=== PATIENT | female | born 1995 | race Caucasian/White ===

== ENCOUNTER 2020-08-25 16:52 | Outpatient (CLI) | payer OTHER, SELFPAY ==
[2020-08-25 17:43] LABS: Hematocrit 36.9 % (37.0-47.0); Hemoglobin 12.5 g/dL (12.0-15.0); Mean Platelet Volume 9.6 fl (7.4-10.4); Platelet Count Result 311 k/mm3 (150-375)
[2020-08-25 18:06] LABS: Hemoglobin A1C 4.9 % (<5.7)
[2020-08-25 18:38] LABS: HIV 1/2 Ab P24 Ag Result Negative (Negative)
[2020-08-25 18:58] LABS: Rubella IgG Antibody 26.4 IU/ML
[2020-08-25 19:10] LABS: Hepatitis B Surface Anti Res Negative; Hepatitis C Virus Antibody Negative (Negative)
[2020-08-26 07:11] LABS: Rapid Plasma Reagin Non-Reactive (NonReactive)
== END 2020-08-25 16:53 | disposition home or self-care (01) ==
LOC: ANHLAB 16:56
PROVIDERS: Visit Provider Obstetrics & Gynecology
DX: Z34.90 Encounter for supervision of normal pregnancy, unspecified, unspecified trimester (principal); Z3A.00 Weeks of gestation of pregnancy not specified
CPT/HCPCS: 36415; 83036; 85014; 85018; 85049; 86592; 86703; 86706; 86762; 86803; 86850; 86900; 86901; G0432

== ENCOUNTER 2021-03-05 06:04 | Inpatient (IN) | payer OTHER, SELFPAY ==
[2021-03-05] VITALS (107 sets, daily range): BP systolic 89–137; BP diastolic 48–99; PULSE 70–148; RESP 18; TEMP 36.4–37.2; O2SAT 86–100; BMI 31.7
--- NOTE | 2021-03-05 06:04 | LDADM ---
This patient, Vijaya Rolle, was admitted to Labor/Delivery/Recovery 106 on 03/05/21 at 06:04. Plans for labor, pain management and were discussed with patient. Patient/family oriented to hospital policies and general routines including ID bracelet, bed and alarms, visiting hours, pain management, procedures, bathroom and other care routines, personal items, smoking policy, room service/diet and guest tray routines, security routines, and visiting hours. Patient/Family are encouraged to report perceived risks to care and to ask questions if they do not understand what they are told or what they should do. See OBIX for further documentation.
[2021-03-05] MEDS: OXYTOCIN 30 UNITS/NS 500 ML 30 UNITS/500 ML BAG 6 UNITS IV CONT (06:56)
[2021-03-05 07:33] LABS: Basophils Percent Auto 0.2 % (0.2-1.2); Eosinophils Absolute Auto 0.1 K/mm3 (0-0.3); Eosinophils Percent Auto 0.6 % (0-4.4); Hematocrit 33.5 % (37.0-47.0); Immature Granulocyte Absolute 0.08 K/mm3 (0.00-0.031); Immature Granulocyte Percent A 0.7 % (0-0.5); Lymphocytes Absolute Auto 1.75 K/mm3 (0.9-3.2); Lymphocytes Percent Auto 15.4 % (18.3-44.2); Mean Corpuscular HGB Conc 32.8 g/dl (32-36); Mean Corpuscular Hemoglobin 28.6 pg (26-34); Mean Platelet Volume 11.2 fl (7.4-10.4); Monocytes Absolute Auto 0.6 K/mm3 (0.1-0.6); Monocytes Percent Auto 5.4 % (2.6-8.5); Neutrophils Absolute Auto 8.9 K/mm3 (1.3-6.7); Neutrophils Percent Auto 77.7 % (45.5-73.1); Platelet Count Result 277 k/mm3 (150-375); Red Blood Count 3.85 M/mm3 (4.2-5.4); White Blood Count 11.4 K/mm3 (4.5-10.0)
[2021-03-05 07:37] LABS: Amphetamine Screen Urine Negative (Negative); Barbiturate Screen Urine Negative (Negative); Benzodiazepines Screen Urine Negative (Negative); Cannabinoid Screen Urine Positive (Negative); Cocaine Screen Urine Negative (Negative); Methadone Screen Urine Negative (Negative); Opiate Screen Urine Negative (Negative); Phencyclidine Screen Urine Negative (Negative)
--- NOTE | 2021-03-05 08:47 | WPDANESEPP ---
Anes - Eval Pre Procedure Procedure: labor epidural Date/Time: 03/05/21 08:47 Pre Op Diagnosis: Induction of Labor Patient Data Age: 25 Gender: F Height: 1.7 m Weight: 92 kg Last Vital Signs Pulse 75 03/05/21 08:16 BP 105/54 L 03/05/21 08:16 Allergies Allergy/AdvReac Type Severity Reaction Status Date / Time No Known Allergies Allergy Unverified 01/19/16 10:56 Home Medications Medication Instructions Recorded Confirmed Type PNV cmb#95-ferrous fumarate-FA 1 tablet PO DAILY 02/07/21 02/07/21 History [] fluoxetine 20 mg PO DAILY 02/07/21 02/07/21 History propranolol 10 mg PO Q8H PRN 02/07/21 02/07/21 History Laboratory Tests 03/05/21 03/05/21 03/05/21 06:50 06:50 06:50 WBC 11.4 K/mm3 H K/mm3 (4.5-10.0) RBC 3.85 M/mm3 L M/mm3 (4.2-5.4) Hgb 11.0 g/dL L g/dL (12.0-15.0) Hct 33.5 % L % (37.0-47.0) MCV 87.0 fl fl (80-100) MCH 28.6 pg pg (26-34) MCHC 32.8 g/dl g/dl (32-36) RDW 13.0 % % (11.5-14.5) Plt Count 277 k/mm3 k/mm3 (150-375) MPV 11.2 fl H fl (7.4-10.4) Immature Gran % (Auto) 0.7 % H % (0-0.5) Neut % (Auto) 77.7 % H % (45.5-73.1) Lymph % (Auto) 15.4 % L % (18.3-44.2) Giles % (Auto) 5.4 % % (2.6-8.5) Eos % (Auto) 0.6 % % (0-4.4) Baso % (Auto) 0.2 % % (0.2-1.2) Lymph # (Auto) 1.75 K/mm3 K/mm3 (0.9-3.2) Giles # (Auto) 0.6 K/mm3 K/mm3 (0.1-0.6) Eos # (Auto) 0.1 K/mm3 K/mm3 (0-0.3) Baso # (Auto) 0.0 K/mm3 K/mm3 (0.0-0.1) Abs Immat Gran (auto) 0.08 K/mm3 H K/mm3 (0.00-0.031) Absolute Neuts (auto) 8.9 K/mm3 H K/mm3 (1.3-6.7) Absolute Nucleated RBC 0.0 K/mm3 K/mm3 (0.0-0.012) Nucleated RBC % 0.0 % % (0.0-0.2) Urine Opiates Screen Urine Methadone Screen Ur Barbiturates Screen Ur Phencyclidine Scrn Ur Amphetamine Screen U Benzodiazepines Scrn Urine Cocaine Screen U Cannabinoids Screen RPR Pending Blood Type O Positive Antibody Screen Negative 03/05/21 07:13 WBC RBC Hgb Hct MCV MCH MCHC RDW Plt Count MPV Immature Gran % (Auto) Neut % (Auto) Lymph % (Auto) Giles % (Auto) Eos % (Auto) Baso % (Auto) Lymph # (Auto) Giles # (Auto) Eos # (Auto) Baso # (Auto) Abs Immat Gran (auto) Absolute Neuts (auto) Absolute Nucleated RBC Nucleated RBC % Urine Opiates Screen Negative (Negative) Urine Methadone Screen Negative (Negative) Ur Barbiturates Screen Negative (Negative) Ur Phencyclidine Scrn Negative (Negative) Ur Amphetamine Screen Negative (Negative) U Benzodiazepines Scrn Negative (Negative) Urine Cocaine Screen Negative (Negative) U Cannabinoids Screen Positive A (Negative) RPR Blood Type Antibody Screen Patient hx anesthesia problems: none Family hx anesthesia problems: none PMFSH Family History Family History Sibling ADHD Social History Social History Smoking status: Never smoker Second hand tobacco smoke exposure: No Substance use: never Gender identity (if verbalized by the patient): Female Spiritual care concerns: No Exam Day of Procedure 03/05/21 08:47 Patient weight: obese Heart: regular rate and rhythm Lungs: clear to auscultation Airway: Mallampati scale Neurological: alert and oriented
[2021-03-05] MEDS: LACTATED RINGERS 1,000 ML 125 ML IV CONT ×2 (09:17→12:05)
--- NOTE | 2021-03-05 10:43 | WPDOBADMIT ---
Obstetrics - Admit Note Admission Note: record reviewed. No pertinent additions to the history and/or any subsequent changes in the physical findings that are not consistent with the expected course of the were found. MIL sve 6-7/80/-2 AROM moderate amount of clear odorless fluid Additions to the history and/or subsequent changes in the physical findings follow. None.
--- NOTE | 2021-03-05 14:38 | PM.OBPRVD ---
OB - Delivery Note Procedure Delivery date: 03/05/21 Procedure: vaginal delivery Intrapartal events: None Induction method: AROM and per pitocin protocol Delivery monitor: external FHT and external uterine Route of delivery: Laceration Description: Perineal - 2nd Degree and Labial (left) Delivery repair: vicryl Specimen: No Quantitative Blood Loss (ml): 625 Anesthesia type: Epidural Disposition: floor [place] Baby Date of : 03/05/21 Time of : 14:09 Weeks of gestation at delivery: 39 Infant gender: Female Weight (pounds): 7 Weight (ounces): 14 presentation: vertex position: Right Occiput Anterior Placenta delivery description: Spontaneous cord vessel description: 3 Vessels, Clamped/Cut and Delayed Cord Clamping score one minute: 9 score five minutes: 9
[2021-03-05] MEDS: OXYTOCIN 30 UNITS/NS 500 ML 30 UNITS/500 ML BAG 125 UNITS IV CONT (14:41)
--- NOTE | 2021-03-05 17:01 | PC.NURSE ---
Patient transferred to post room #280 per wheelchair from labor and delivery. Support person present. Oriented to unit, room, information board, rooming in, admission packet and security measures. Patient verbalizes understanding.
[2021-03-05] MEDS: ACETAMINOPHEN 325 MG TABLET 650 MG PO (19:02)
[2021-03-06 04:00] VITALS: BP 122/67; PULSE 79; RESP 18; TEMP 36.6; O2SAT 99
[2021-03-06 05:47] LABS: Hematocrit 26.1 % (37.0-47.0); Hemoglobin 8.4 g/dL (12.0-15.0)
[2021-03-06 07:54] VITALS: BP 112/62; PULSE 74; RESP 18; TEMP 37.1; O2SAT 98
[2021-03-06] MEDS: POLYSACCHARIDE IRON COMPLEX 150 MG CAPSULE PO ×2 (07:55→15:55)
[2021-03-06] MEDS: MULTIVIT/MIN/PREN/FOL AC/IRON TABLET 1 TAB PO (07:55)
[2021-03-06] MEDS: IBUPROFEN 600 MG TABLET PO ×2 (07:55→15:55)
[2021-03-06] MEDS: DOCUSATE SODIUM 100 MG CAPSULE PO ×2 (07:55→15:55)
--- NOTE | 2021-03-06 09:04 | WPDANLDPN2 ---
Anes-Prog Note L&D Date/Time: 03/06/21 09:04 Comfortable throughout: labor and delivery Neuraxial method: epidural Epidural/Spinal procedure site: clean & non-tender Neuro status: Neuro function grossly intact. Cardiovascular status: normal Respiratory status: normal Airway patency: baseline Mental status: baseline Post-Op hydration status: normal Vital Signs: Last Vital Signs Temp 37.1 C 03/06/21 07:54 Pulse 74 03/06/21 07:54 Resp 18 03/06/21 07:54 BP 112/62 03/06/21 07:54 Pulse Ox 98 03/06/21 07:54 Pain score (VAS): 0/10 I/O: Intake & Output 03/05/21 03/06/21 03/06/21 23:59 07:59 15:59 Intake Total 1300 Output Total 900 Balance 400 Post-procedural complaints: none Patient feedback: Patient satisfied with anesthetic care.
--- NOTE | 2021-03-06 10:37 | PM.OBPNVD ---
OB - PN: Subj Subjective Date/time seen: 03/06/21 10:37 Patient comments: no complaints baby status: doing well OB - PN: Obj Data Labs CBC & Chem 7: 03/06/21 03:54 Labs: Laboratory Results - last 24 hr 03/06/21 03:54 Hgb 8.4 L Hct 26.1 L OB - PN A/P Plan day: 1 Plan: routine care Time Spent With Patient Time: Total time spent is greater than 50% in coordination of care (as documented) at patient's floor/unit and/or counseling patient: Review of Systems Review of Systems: All systems reviewed & are unremarkable except as noted in HPI and below Exam Const: General: cooperative and healthy appearing
[2021-03-06 13:28] VITALS: BP 117/70; PULSE 81; RESP 16; TEMP 36.4; O2SAT 99
[2021-03-06 18:24] VITALS: BP 119/72; PULSE 99; RESP 18; TEMP 36.6; O2SAT 99
--- NOTE | 2021-03-06 22:25 | PC.NURSE ---
03/06/2021 at 1999 Patient viewed the discharge video Mother & Baby Care, The First Two Weeks . Patient was given the opportunity and encouraged to ask questions. Patient verbalized understanding of information shared and has been given the mother/baby guide for home reference.
[2021-03-07 06:21] LABS: Rapid Plasma Reagin Non-Reactive (NonReactive)
--- NOTE | 2021-03-07 07:37 | PM.OBPNVD ---
OB - PN: Subj Subjective Date/time seen: 03/07/21 07:37 Patient comments: no complaints baby status: doing well [place] feeding status: exclusively bottle feeding Narrative: E/A/V OB - PN: Obj Data Labs CBC & Chem 7: 03/06/21 03:54 Labs: Laboratory Results - last 24 hr 03/05/21 06:50 RPR Non-reactive OB - PN A/P Assessment and Plan (1) , delivered: Code(s): O80 - Encounter for full-term uncomplicated delivery Status: Acute (2) Acute blood loss anemia: Code(s): D62 - Acute posthemorrhagic anemia Status: Acute Plan day: 2 Plan: routine care and discharge home Comments: continue iron for anemia. Discussed OTC medications. Time Spent With Patient Time: Total time spent is greater than 50% in coordination of care (as documented) at patient's floor/unit and/or counseling patient: Time with patient: less than 15 minutes Exam Narrative: NAD abdomen soft, nontender, fundus firm below the umbilicus Extremities nontender, 1+ edema
--- NOTE | 2021-03-07 07:43 | PM.OBDSVD ---
DS: Admitting Diagnosis Admitting Diagnosis induction of labor term DS: Discharge Diagnosis Discharge Diagnosis (1) Acute blood loss anemia: Code(s): D62 - Acute posthemorrhagic anemia Status: Acute (2) , delivered: Code(s): O80 - Encounter for full-term uncomplicated delivery Status: Acute OB - DS: Summary OB Procedures : Ultrasound OB Procedures Intrapartum: Spontaneous Vag Delivery OB Procedures: : None Peripartum Data Delivery Method: Natural Vaginal Laceration Description: Perineal - 2nd Degree complications: none Status at Discharge Functional status at discharge: independent ambulation Time Spent with Patient Time attestation: Total time spent providing and/or coordinating discharge services: Time spent: Less than 30 minutes Exam Narrative: NAD abdomen soft, appropriately tender Ext non tender, 1+ edema DS: Data Data Completed and Pending Labs on day of discharge: Labs from last 24 hours 03/05/21 06:50 RPR Non-reactive Discharge Plan Discharge Attending physician on discharge: Sheri Plunkett Discharging Clinician: Sheri Plunkett Anticipated Discharge Date/Time: 03/07/21 11:00 Patient Disposition: Home, Self-Care Activity: pelvic rest Diet: as tolerated Discharge Instructions: Education: Mom and Baby Guide Given to: Mother Follow-Up: Call your delivering provider's office for an appointment to be seen in: 4 Weeks Mom and baby should come to the [facility] for the follow-up appointment. Appointment Date/Time: March 09, 2021 at 9:00 am What to expect at your follow-up visit: Blood Pressure Check Physical Assessment Call [phone] if you are unable to keep your appointment time. BREAST CARE: * Wear a snug supportive bra. * For engorgement discomfort: Bottle Feeding: * May apply ice packs *No stimulation to breasts EPISIOTOMY/PERINEAL CARE: * Until bleeding stops, use your laura bottle after urinating * Change your pad frequently throughout the day * You may take sitz baths several times a day (fill your bathtub with warm water and soak for 20 minutes.) Do NOT bathe in the water * No tub baths until seen by your physician - You may shower ACTIVITY: * Rest as much as possible. * Do not exercise or lift anything heavier than your baby (such as laundry or other children.) * Avoid stairs or driving as much as possible. * Do not put anything into the vagina. No douching, tampons, or sexual activity until seen by physician. NOTIFY PHYSICIAN IF YOU HAVE ANY QUESTIONS OR IF ANY OF THE FOLLOWING SYMPTOMS OCCUR: * If your vaginal area becomes red, swollen, or more painful than what you have experienced in the hospital. * If your vaginal bleeding becomes foul smelling. * If your vaginal bleeding becomes more heavy than a period or if your bleeding changes from pink to bright red. However, you may pass an occasional walnut-sized clot once or twice for the first week . * If you experience a sharp, shooting pain in your calves. * If you discover a hard, reddened area on your breast or if you experience flu-like symptoms. DIET: * Eat regular, well-balanced meals. * Drink plenty of fluids daily. Patient Instructions: Antibiotic Form, Vaginal Delivery (DC) Stand Alone Forms: General Discharge Information Follow-up/Referrals: Ghislaine Deutsch MD [Physician] - 4 Weeks Discharge Medications: Continued propranolol 10 mg Tablet 10 mg PO Q8H PRN (Reason: Anxiety) RF: 0 fluoxetine 20 mg Capsule 20 mg PO DAILY RF: 0 PNV cmb#95-ferrous fumarate-FA [] 28 mg iron- 800 mcg Tablet 1 tablet PO DAILY RF: 0 Date of admission: 03/05/21 06:04 Primary Care Provider: PHYSICIAN,[facility] Admitting Provider: Ghislaine Deutsch Attending physician on admission: Ghislaine Deutsch Condition: Stable
[2021-03-07 08:00] VITALS: BP 118/75; PULSE 78; RESP 18; TEMP 36.3; O2SAT 99
--- NOTE | 2021-03-07 11:08 | PCCCNOTE ---
Addendum entered by PERCY Cervantes 03/08/21 09:20: Received email notification that DCFS will not take a report. Original Note: Care Coordination Consult: Met with pt. and CHELSEY Jacques today. This is pt.'s and Sawyer's first child. Pt. has a supportive family. Has all necessary supplies at home for baby including a crib, carseat, clothing, diapers and bottles. Plans to bottle feed baby at discharge. Resources were provided. Pt. is thinking about utilizing [facility] services at discharge and plans to use the [place] office if needed. Pt. reports recreational marijuana use and is aware she tested positive at admission. Baby's meconium is pending. Pt. denies a reliance on marijuana, denies any other substance use. Plans to discharge today. Denies any other case management needs. Did complete online DCFS report regarding marijuana use, ID [id number].
[2021-03-07] MEDS: IBUPROFEN 600 MG TABLET PO (11:57)
[2021-03-07] MEDS: POLYSACCHARIDE IRON COMPLEX 150 MG CAPSULE PO (11:57)
[2021-03-07] MEDS: FLUoxetine HCL 20 MG CAPSULE PO (11:58)
[2021-03-07] MEDS: MULTIVIT/MIN/PREN/FOL AC/IRON TABLET 1 TAB PO (11:58)
[2021-03-07] MEDS: DOCUSATE SODIUM 100 MG CAPSULE PO (11:58)
[2021-03-07 12:00] VITALS: PULSE 78; RESP 18; O2SAT 99
== END 2021-03-07 13:00 | disposition home or self-care (01) | DRG 807 ==
LOC: ANHOB2 03-07 07:42 → ANHLDR 03-09 15:06 → ANHOB2 03-09 15:06
PROVIDERS: Advanced Practice Midwife; Admitting Provider Obstetrics & Gynecology; Visit Provider Obstetrics & Gynecology
DX: O70.1 Second degree perineal laceration during delivery (principal); Z37.0 Single live birth; Z3A.39 39 weeks gestation of pregnancy
CPT/HCPCS: 36415; 80307; 85014; 85018; 85025; 86592; 86850; 86900; 86901; A9270; J2590; J2795; J7120

== ENCOUNTER 2024-04-02 15:34 | Outpatient (CLI) | payer OTHER, SELFPAY ==
--- NOTE | ~2024-04-02 | US_ITS ---
US breast LT limited 04/02/2024 15:50 Indication: Palpable left breast lump. Procedure: High-resolution Limited ultrasound of the left breast Comparison: No prior studies for comparison. Findings: In the area of palpable concern at 2:00 in the left breast, 4 cm from the nipple there is a n oval heterogeneous predominantly hypoechoic mass with parallel orientation, no significant posterio r features and brisk internal vascularity measuring 5.7 x 3.1 x 5.3 cm. Impression: 1: Left breast mass measuring up to 5.7 cm with internal vascularity in the area palpable concern. BI-RADS CATEGORY 4-SUSPICIOUS ABNORMALITY RECOMMENDATION: Ultrasound-guided left breast biopsy recommended. Reviewed, dictated and finalized at location B. Impression: 1: Left breast mass measuring up to 5.7 cm with internal vascularity in the are a palpable concern. BI-RADS CATEGORY 4-SUSPICIOUS ABNORMALITY RECOMMENDATION: Ultrasound-guided left breast biopsy recommended.
== END 2024-04-02 15:35 | disposition home or self-care (01) ==
LOC: MICIMG 15:34
PROVIDERS: PCP Advanced Practice Midwife; Visit Provider Advanced Practice Midwife
DX: N63.21 Unspecified lump in the left breast, upper outer quadrant (principal)
CPT/HCPCS: 76642

== ENCOUNTER 2024-04-17 14:12 | Outpatient (CLI) | payer OTHER, SELFPAY ==
--- NOTE | ~2024-04-17 | US_ITS ---
Post biopsy pathology: Blunt duct adenosis. Negative for malignancy. Findings are discordant. Recomme nd repeat biopsy. Reviewed, dictated and finalized at location B.
--- NOTE | 2024-04-17 13:39 | WPDBIOPSY ---
Biopsy Procedure Date of Procedure 04/17/24 Indication Left breast mass at 2 o'clock position 4cm from the nipple Impression Same as above Procedure Performed Procedure Performed: US Breast Biopsy with Imaging Surgeon Fernanda Rowland MD Anesthesia Anesthesia: Local Description of Procedure Description of Procedure: Risk of the procedure were discussed with the patient which included but not limited to risk of bleeding, infection, possible need for repeat biopsy or additional procedures in the future, bruising, hematoma,etc. Benefits and alternatives to procedure were discussed as well. Consent was obtained and a time out was performed. The left breast mass was identified using the US at 2 o'clock position 4 cm from the nipple, and lidocaine with epinephrine was used to anesthetize the skin and tissue surrounding the mass under US guidance. A 10g vacuum assisted device was used to obtain 4 core biopsy specimens under US guidance. An Inrad tissue marker clip was then placed at the biopsy site under US guidance. Pressure was held over the area for 10 minutes with excellent hemostasis. Core needle specimens were sent to pathology in formalin. Patient tolerated the procedure well with no immediate complications. A post-procedure left mammogram was not obtained due to patient's .
== END 2024-04-17 14:13 | disposition home or self-care (01) ==
LOC: ANHIMG 14:13
PROVIDERS: PCP Advanced Practice Midwife; Visit Provider Surgery
DX: O92.29 Other disorders of breast associated with pregnancy and the puerperium (principal); N63.21 Unspecified lump in the left breast, upper outer quadrant; N60.22 Fibroadenosis of left breast
CPT/HCPCS: 19083; 88305; 88342; A4648

== ENCOUNTER 2024-04-25 09:28 | Outpatient (RCR) | payer OTHER, SELFPAY ==
--- NOTE | ~2024-04-25 | US_ITS ---
EXAMINATION: US OB BPP wo non-stress DATE: 04/25/2024 11:15 INDICATION: Nonreactive nonstress test in office exam TECHNIQUE: Real-time pelvic ultrasound was performed. The interpreting radiologist was not present fo r the study. COMPARISON: None. FINDINGS: There is a single living fetus in vertex presentation. The placenta is posterior. heart rate i s 132 beats per minute (bpm). Biophysical profile performed by the technologist: breathing (30 sec sustained breathing in 30 minutes): 2 out of 2 movement (3 gross body movements in 30 minutes): 2 out of 2 tone (one episode of hjgsafz-xvazcgxkw-gfrhkqu limb movement): 2 out of 2 Amniotic fluid pocket (2 cm): 2 out of 2 Total score: 8 out of 8 IMPRESSION: 1. Single living fetus in vertex presentation with heart rate of 132 bpm. 2. Biophysical profile 8 out of 8. Reviewed, dictated and finalized at location A.
[2024-04-25 11:11] VITALS: BP 111/73; PULSE 75
== END 2024-07-24 23:59 | disposition home or self-care (01) ==
LOC: ANHOBOP 09:28
PROVIDERS: Visit Provider Advanced Practice Midwife
DX: O36.8330 Maternal care for abnormalities of the fetal heart rate or rhythm, third trimester, not applicable or unspecified (principal)
CPT/HCPCS: 59025; 76819

== ENCOUNTER 2024-05-01 15:49 | Outpatient (RCR) | payer OTHER, SELFPAY ==
[2024-04-30] MEDS: BETAMETHASONE SOD PHOS/ACETATE 30 MG/5 ML VIAL 12 MG IM (12:14)
[2024-05-01] MEDS: BETAMETHASONE SOD PHOS/ACETATE 30 MG/5 ML VIAL 12 MG IM (16:07)
== END 2024-07-29 23:59 | disposition home or self-care (01) ==
LOC: ANHOBOP 15:49
PROVIDERS: Visit Provider Advanced Practice Midwife
DX: Z36.84 Encounter for antenatal screening for fetal lung maturity (principal)
CPT/HCPCS: 96372; J0702

== ENCOUNTER 2024-05-09 | Inpatient (IN) | payer OTHER, SELFPAY ==
[2024-05-09] VITALS (89 sets, daily range): BP systolic 82–145; BP diastolic 40–116; PULSE 65–95; RESP 16–18; TEMP 36.4–37.2; O2SAT 97–100
--- OUTSIDE RECORDS SUMMARY | 2024-05-09 00:10 | XMS_ITS ---
Author Name Unknown Address [address], [place] Phone Organization [facility] Address [address] [place] [address] Phone Care Team Providers Care Siderographer Name Role Phone MARCO FLANAGAN, JOSIAH Lopez Unavailable [phone] Problems Includes: Active, inactive, and resolved Problems All Visits Onset Date Resolved Date Provider Condition S tatus Endometriosis 10/30/2018 JAY NIETO [facility] Active Last Documented On 10/30/2018 12:54PM ; [facility] Note: confirmed with surgery - Dr. Isai Laguerre - KIANNA - 2015 Plan of Treatment Findings Encounter Date Ordered Clinical summary pro vided to patient 2 WK CK-UP with JAY NIETO [facility] 02/05/2020 Instructions to patient May resume normal activities as tolerated Last Documented On 0 10:26AM ; [facility] Instructions for patient : B reast Self Exam discussed Last Documented On 0 9:10AM ; [facility] Instructions for patient : t he patient was instructed in the use and possible side effects of the medication prescribed. She is to maintain good hydration via p.o. fluids. We also discussed possible triggers for UTI and preventive measures Last Documented On 0 9:18AM ; [facility] Lose weight Last Documented On 0 9:10AM ; [facility] Patient to call if fever or back pain Last Documented On 0 9:18AM ; [facility] Instructed to decrease carbo nation and caffeine Last Documented On 0 9:18AM ; [facility] Increase water po Last Documented On 0 9:18AM ; [facility] Instructions For Patient: go od handwashing and perineal care Last Documented On 0 9:18AM ; [facility] Instructions for patient : K eep the area around the vulva dry. Allow the area to have exposure to air. Avoid irritants such as fabric softeners and perfumed soaps.~ Last Documented On 0 1:31PM ; [facility] Advised d/c scented bath pro ducts Last Documented On 0 1:31PM ; [facility] Instructions for patient : B reast Self Exam discussed Last Documented On 9 9:37AM ; [facility] Lose weight Last Documented On 9 9:38AM ; [facility] Gardasil information given a nd series encouraged Series completed! Last Documented On 9 9:38AM ; [facility] Safe sex counseling Last Documented On 9 9:38AM ; [facility] Safe sex counseling Last Documented On 9 12:34PM ; [facility] Instructions for patient : B reast Self Exam discussed Last Documented On 5 9:56AM ; [facility] Instructions for patient : K eep the area around the vulva dry. Allow the area to have exposure to air. Avoid irritants such as fabric softeners and perfumed soaps.~ Last Documented On 5 10:31AM ; [facility] Advised d/c scented bath pro ducts Last Documented On 5 10:31AM ; [facility] Gardasil information given a nd series encouraged Series completed! Last Documented On 5 9:56AM ; [facility] Safe sex counseling Last Documented On 5 9:56AM ; [facility] Instructions for patient : B reast Self Exam discussed Last Documented On 4 10:02AM ; [facility] Instructions for patient : K eep the area around the vulva dry. Allow the area to have exposure to air. Avoid irritants such as fabric softeners and perfumed soaps.~ Last Documented On 4 10:15AM ; [facility] Advised d/c scented bath pro ducts Last Documented On 4 10:15AM ; [facility] Gardasil information given a nd series encouraged Series completed with Dr. Mckeon! Last Documented On 4 10:09AM ; [facility] Safe sex counseling Last Documented On 4 10:03AM ; [facility] Instructions for patient : B reast Self Exam discussed Last Documented On 2 3:13PM ; [facility] Gardasil information given a nd series encouraged Last Documented On 2 3:13PM ; [facility] Safe sex counseling Last Documented On 2 3:13PM ; [facility] Instructions for patient : K eep the area around the vulva dry. Allow the area to have exposure to air. Avoid irritants such as fabric softeners and perfumed soaps.~ Last Documented On 2 10:15AM ; [facility] Advised d/c scented bath pro ducts Last Documented On 2 10:15AM ; [facility] Instructions For Patient: pe lvic rest until test results back Last Documented On 2 10:47AM ; [facility] Education and Decision Aids were provided during visit for: Patient counseling : discuss ed with patient importance of f/u re: increased risks of cervical cancer Last Documented On 0 10:26AM ; [facility] INFORMED CONSENT DISCUSSION: Colposcopy was discussed in detail including risk of post procedure bleeding. Patient is not to have intercourse for 2 weeks following the procedure. Patient expressed understanding of the above and consented to the procedure Last Documented On 0 11:07AM ; [facility] Patient Education: Daily linda cium and vitamin D Last Documented On 0 9:10AM ; [facility] Patient Education: weight be aring exercise Last Documented On 0 9:10AM ; [facility] Bacterial Vaginosis Informat ion Sheet Given Last Documented On 0 1:58PM ; [facility] Patient Education: Daily linda cium and vitamin D Last Documented On 9 9:37AM ; [facility] Patient Education: weight be aring exercise Last Documented On 9 9:37AM ; [facility] Patient Education: Daily linda cium and vitamin D Last Documented On 5 9:56AM ; [facility] Patient Education: weight be aring exercise Last Documented On 5 9:56AM ; [facility] Candidiasis Vulvovaginitis I nformation Sheet Given Last Documented On 5 10:31AM ; [facility] Patient Education: Daily linda cium and vitamin D Last Documented On 4 10:02AM ; [facility] Patient Education: weight be aring exercise Last Documented On 4 10:02AM ; [facility] Candidiasis Vulvovaginitis I nformation Sheet Given Last Documented On 4 10:15AM ; [facility] Patient counseling : Use of oral contraceptives discussed in detail including rare occurrence of heart attack, stroke, and leg clots. Patient understands that smoking increases the risk of serious side effects with any steroid-based contraceptive method Last Documented On 3 1:33PM ; [facility] Patient Education: Daily linda cium and vitamin D Last Documented On 2 3:13PM ; [facility] Patient Education: weight be aring exercise Last Documented On 2 3:13PM ; [facility] control consent review ed and signed Last Documented On 2 3:13PM ; [facility] Patient counseling : STD pre vention. I discussed with the patient that condoms can reduce the chance of getting an STD but not eliminate it. Increased exposure from multiple sex partners also discussed Last Documented On 2 10:47AM ; [facility] Assessments Includes: Assessments for all patient encounters Findings Encounter Date Assessment of abnormal Pap s mear of cervix COLPOSCOPY with JAY NIETO SOURAV- 01/27/2020 Instructions Includes: Instructions for all patient encounters Instructions to patient May resume normal activities as tolerated Last Documented On 0 10:26AM ; [facility] Instructions for patient : B reast Self Exam discussed Last Documented On 0 9:10AM ; [facility] Instructions for patient : t he patient was instructed in the use and possible side effects of the medication prescribed. She is to maintain good hydration via p.o. fluids. We also discussed possible triggers for UTI and preventive measures Last Documented On 0 9:18AM ; [facility] Lose weight Last Documented On 0 9:10AM ; [facility] Patient to call if fever or back pain Last Documented On 0 9:18AM ; [facility] Instructed to decrease carbo nation and caffeine Last Documented On 0 9:18AM ; [facility] Increase water po Last Documented On 0 9:18AM ; [facility] Instructions For Patient: go od handwashing and perineal care Last Documented On 0 9:18AM ; [facility] Instructions for patient : K eep the area around the vulva dry. Allow the area to have exposure to air. Avoid irritants such as fabric softeners and perfumed soaps.~ Last Documented On 0 1:31PM ; [facility] Advised d/c scented bath pro ducts Last Documented On 0 1:31PM ; [facility] Instructions for patient : B reast Self Exam discussed Last Documented On 9 9:37AM ; [facility] Lose weight Last Documented On 9 9:38AM ; [facility] Gardasil information given a nd series encouraged Series completed! Last Documented On 9 9:38AM ; [facility] Safe sex counseling Last Documented On 9 9:38AM ; [facility] Safe sex counseling Last Documented On 9 12:34PM ; [facility] Instructions for patient : B reast Self Exam discussed Last Documented On 5 9:56AM ; [facility] Instructions for patient : K eep the area around the vulva dry. Allow the area to have exposure to air. Avoid irritants such as fabric softeners and perfumed soaps.~ Last Documented On 5 10:31AM ; [facility] Advised d/c scented bath pro ducts Last Documented On 5 10:31AM ; [facility] Gardasil information given a nd series encouraged Series completed! Last Documented On 5 9:56AM ; [facility] Safe sex counseling Last Documented On 5 9:56AM ; [facility] Instructions for patient : B reast Self Exam discussed Last Documented On 4 10:02AM ; [facility] Instructions for patient : K eep the area around the vulva dry. Allow the area to have exposure to air. Avoid irritants such as fabric softeners and perfumed soaps.~ Last Documented On 4 10:15AM ; [facility] Advised d/c scented bath pro ducts Last Documented On 4 10:15AM ; [facility] Gardasil information given a nd series encouraged Series completed with Dr. Mckeon! Last Documented On 4 10:09AM ; [facility] Safe sex counseling Last Documented On 4 10:03AM ; [facility] Instructions for patient : B reast Self Exam discussed Last Documented On 2 3:13PM ; [facility] Gardasil information given a nd series encouraged Last Documented On 2 3:13PM ; [facility] Safe sex counseling Last Documented On 2 3:13PM ; [facility] Instructions for patient : K eep the area around the vulva dry. Allow the area to have exposure to air. Avoid irritants such as fabric softeners and perfumed soaps.~ Last Documented On 2 10:15AM ; [facility] Advised d/c scented bath pro ducts Last Documented On 2 10:15AM ; [facility] Instructions For Patient: pe lvic rest until test results back Last Documented On 2 10:47AM ; [facility] Education and Decision Aids were provided during visit for: Patient counseling : discuss ed with patient importance of f/u re: increased risks of cervical cancer Last Documented On 0 10:26AM ; [facility] INFORMED CONSENT DISCUSSION: Colposcopy was discussed in detail including risk of post procedure bleeding. Patient is not to have intercourse for 2 weeks following the procedure. Patient expressed understanding of the above and consented to the procedure Last Documented On 0 11:07AM ; [facility] Patient Education: Daily linda cium and vitamin D Last Documented On 0 9:10AM ; [facility] Patient Education: weight be aring exercise Last Documented On 0 9:10AM ; [facility] Bacterial Vaginosis Informat ion Sheet Given Last Documented On 0 1:58PM ; [facility] Patient Education: Daily linda cium and vitamin D Last Documented On 9 9:37AM ; [facility] Patient Education: weight be aring exercise Last Documented On 9 9:37AM ; [facility] Patient Education: Daily linda cium and vitamin D Last Documented On 5 9:56AM ; [facility] Patient Education: weight be aring exercise Last Documented On 5 9:56AM ; [facility] Candidiasis Vulvovaginitis I nformation Sheet Given Last Documented On 5 10:31AM ; [facility] Patient Education: Daily linda cium and vitamin D Last Documented On 4 10:02AM ; [facility] Patient Education: weight be aring exercise Last Documented On 4 10:02AM ; [facility] Candidiasis Vulvovaginitis I nformation Sheet Given Last Documented On 4 10:15AM ; [facility] Patient counseling : Use of oral contraceptives discussed in detail including rare occurrence of heart attack, stroke, and leg clots. Patient understands that smoking increases the risk of serious side effects with any steroid-based contraceptive method Last Documented On 3 1:33PM ; [facility] Patient Education: Daily linda cium and vitamin D Last Documented On 2 3:13PM ; [facility] Patient Education: weight be aring exercise Last Documented On 2 3:13PM ; [facility] control consent review ed and signed Last Documented On 2 3:13PM ; [facility] Patient counseling : STD pre vention. I discussed with the patient that condoms can reduce the chance of getting an STD but not eliminate it. Increased exposure from multiple sex partners also discussed Last Documented On 2 10:47AM ; [facility] Medical Equipment - Implanted Devices Includes: Current and historical Devices No Medical Equipment Recorded Medications Includes: Current and historical Medications Current Medications (continue as prescribed) Levaquin 500 MG Oral Tablet 01/27/2020 Provider: JAY NIETO [facility]NP-BC Diagnosis: One tablet daily Macrobid 100 MG Oral Capsule 01/16/2020 Provider: JAY NIETO [facility] Diagnosis: One tablet twice a day 19 Oral Tablet 01/14/2020 Provider: RAFAELA NIETO WHNP-BC Diagnosis: One tablet daily Bactrim DS 800-160 MG Oral Tablet 01/14/2020 Provide r: JAY Makenna GERSON WHNP-BC Diagnosis: One tablet twice a day Oxybutynin Chloride ER 10MG Oral Tablet, extended-release 24 hour 10/30/2018 Provider: Diagnosis: Past Medications on file Flagyl 500 MG Oral Tablet 09/26/2019 - 01/14/2020 Prov ider: JAY NIETO [facility]NP-BC Diagnosis: One tablet twice a day 19 Oral Tablet 01/10/2019 - 01/14/2020 Provid er: JAY NIETO WHNP-BC Diagnosis: One tablet daily Ashlyna 0.15-0.03 &0.01MG Oral Tablet 10/30/2018 - 01/10/2019 Provider: JAY NIETO WH IMAGE EDITOR-BC Diagnosis: One tablet daily Sprintec 28 0.25-35 MG-MCG OR TABS 08/13/2014 - 08/08/2015 Provider: JAY NIETO [facility] Diagnosis: CONTRACEPT SURVE ILL NOS Diflucan 150 MG OR TABS 08/13/2014 - 09/12/2014 Provider: JAY NIETO [facility] Diagnosis: CANDIDAL VULVOVA GINITIS take one dose po x 1 and rpt. in 3 days Sprintec 28 0.25-35 MG-MCG OR TABS 08/06/2013 - 08/13/2014 Provider: JAY NIETO [facility]NP-[facility] Diagnosis: CONTRACEPT SURVE ILL NOS Diflucan 150 MG OR TABS 08/06/2013 - 08/13/2014 Provider: JAY NIETO [facility]NP-[facility] Diagnosis: CANDIDAL VULVOVA GINITIS take one dose po x 1 and rpt. in 3 days Sprintec 28 0.25-35 MG-MCG OR TABS 11/28/2012 - 08/06/2013 Provider: JAY NIETO NP-BC Diagnosis: CONTRACEPT SURVE ILL NOS Sprintec 28 0.25-35 MG-MCG O R TABS 10/22/2012 - 11/28/2012 Provider: JAY NIETO IMAGE EDITOR-BC Diagnosis: Sprintec 28 0.25-35 MG-MCG O R TABS 07/26/2012 - 10/22/2012 Provider: JAY NIETO IMAGE EDITOR-BC Diagnosis: metroNIDAZOLE 500 MG OR TABS 07/12/2012 - 07/26/2012 P rovider: JAY NIETO NP-BC Diagnosis: Doxycycline Hyclate 100 MG O R CAPS 07/12/2012 - 07/19/2012 Provider: JAY NIETO IMAGE EDITOR-BC Diagnosis: Retin-A 0.025% EX CREA 07/12/2012 - 10/30/2018 Provide r: Diagnosis: Medications Administered Includes: Administered Medications in patient's chart No Administered Medications Recorded Results Includes: Results from 05/09/2023 through 05/09/2024 No Results Recorded For Specified Dates History of Present Illness History of Present Illness not supported for this document type No History of Present Illness Recorded Social History Description Last Updated Smoking status : Never smoker 01/27/2020 Procedures and Surgical History Surgical History Last Updated Surgical / procedural history endometrio sis 09/26/2019 Medical History Includes: Medical History in patient's chart Description Last Updated LMP: 01/13/2020 01/27/2020 Family History Includes: Family History in patient's chart Description Last Updated Family history unchanged 01/14/2020 Review of Systems Review of Systems not supported for this document type No Review of Systems Recorded Mental Status No Mental Status Recorded Functional Status No Functional Status Recorded Physical Exam Physical Exam not supported for this document type No Physical Exam Recorded Allergies Includes: Active, inactive, and resolved Allergies No Known Allergies Clinical Notes Includes: Signed Clinical Notes starting from 08/18/2022 No Clinical Notes Recorded
--- OUTSIDE RECORDS SUMMARY | 2024-05-09 00:10 | XMS_ITS | Clinical Summary ---
Author Name Unknown Address [address] [place] [address] Phone Organization [facility] Address [address] [place] [address] Phone Care Team Providers Care Double Cutter Name Role Phone MARCO FLANAGAN, JOSIAH Lopez Unavailable [phone] Reason for Visit and Chief Complaint The Chief Complaint is: 2 week colpo follow up Problems Includes: Problems addressed during this encounter and other active Problems All Visits Onset Date Resolved Date Provider Condition S tatus Endometriosis 10/30/2018 JAY NIETO [facility]- Active Last Documented On 10/30/2018 12:54PM ; [facility] Note: confirmed with surgery - Dr. Isai Laguerre - [place] - 2015 Plan of Treatment - Clinical summary provided to patient - Last Documented On 02/05/2020 10:27AM ; [facility] Instructions to patient May resume normal activities as tolerated Last Documented On 0 10:26AM ; [facility] Education and Decision Aids were provided during visit for: Patient counseling : discuss ed with patient importance of f/u re: increased risks of cervical cancer Last Documented On 0 10:26AM ; [facility] Assessments Includes: Assessments from this encounter No Assessments Recorded Instructions Includes: Instructions from this encounter Instructions to patient May resume normal activities as tolerated Last Documented On 0 10:26AM ; [facility] Education and Decision Aids were provided during visit for: Patient counseling : discuss ed with patient importance of f/u re: increased risks of cervical cancer Last Documented On 0 10:26AM ; [facility] Medical Equipment - Implanted Devices Includes: Current Devices No Medical Equipment Recorded Medications Includes: Medications discussed during this encounter and other current Medications Current Medications (continue as prescribed) Levaquin 500 MG Oral Tablet 01/27/2020 Provider: JAY NIETO WHNP-BC Diagnosis: One tablet daily Macrobid 100 MG Oral Capsule 01/16/2020 Provider: JAY NIETO WHNP-BC Diagnosis: One tablet twice a day 19 Oral Tablet 01/14/2020 Provider: RAFAELA NIETO WHNP-BC Diagnosis: One tablet daily Bactrim DS 800-160 MG Oral Tablet 01/14/2020 Provide r: JAY NIETO WHNP-BC Diagnosis: One tablet twice a day Oxybutynin Chloride ER 10MG Oral Tablet, extended-release 24 hour 10/30/2018 Provider: Diagnosis: Past Medications on file Sprintec 28 0.25-35 MG-MCG OR TABS 08/13/2014 - 08/08/2015 Provider: JAY NIETO WHNP-BC Diagnosis: CONTRACEPT SURVE ILL NOS Diflucan 150 MG OR TABS 08/13/2014 - 09/12/2014 Provider: JAY NIETO WHNP-BC Diagnosis: CANDIDAL VULVOVA GINITIS take one dose po x 1 and rpt. in 3 days metroNIDAZOLE 500 MG OR TABS 07/12/2012 - 07/26/2012 P rovider: JAY NIETO WHNP-BC Diagnosis: Doxycycline Hyclate 100 MG O R CAPS 07/12/2012 - 07/19/2012 Provider: AJY NIETO WH DRONE PILOT-BC Diagnosis: Medications Administered Includes: Administered Medications from this encounter No Administered Medications Recorded Vital Signs Includes: Vital Signs from this encounter Vital Name 02/05/2020 10:18A Blood Pressure Sitting L 118/64 BP Cuff Size Regular Temp-Oral (F) 98 Height (in) 68 Weight (lb) 190 Body Mass Index (kg/m2) 28.9 Body Surface Area (m2) 2.0 Last Documented: On 02/05/2020 10:20A M ; [facility] Results Includes: Results discussed during this encounter PATHOLOGY SPECIMEN [facility] [place] Ordered by JAY PAZ P-BC on 01/27/2020 [address] [facility], [place], [address] Collected: 01/27/2020 Report ed: 02/04/2020 10:07 tel: PATH YES L (Low) Last Documented On 02/04/2020 2:04PM ; [facility] Note: Responsible Observer: (DONNELL) PATHOLOGY SPECIMEN See Note None Last Documented On 02/04/2020 2:04PM ; [facility] Note: _PATHOLOGY_ See reference lab report.Responsible Observer: (DONNELL) History of Present Illness Includes: History of Present Illness from this encounter ELIZABETH HUDDLESTON is a 24 year old female. - Medication list reviewed. - No night sweats. Social History Description Last Updated Alcohol use occ 01/14/2020 Procedures and Surgical History Includes: Procedures from this encounter Procedures Code Diagnosis Performing Provider Service L ocation Service Date follow-up visit Surgical History Last Updated Surgical / procedural history endometrio sis 09/26/2019 Medical History Includes: Medical History addressed during this encounter Description Last Updated LMP: 01/13/2020 01/27/2020 Family History Includes: Family History addressed during this encounter Description Last Updated Family history unchanged 01/14/2020 Review of Systems Includes: Review of Systems from this encounter Systemic: Not feeling poorly (malaise). No fever. Head: No headache. Eyes: No vision problems. Otolaryngeal: No tinnitus. Cardiovascular: The heart rate was not fast. Gastrointestinal: Normal appetite, no dysphagia, and no heartburn. No nausea, no vomiting, and no abdominal pain. No pelvic pain. Genitourinary: No hematuria and no increase in urinary frequency. No dysuria. No genital lesion and no menorrhagia. No dysmenorrhea and no bleeding between periods. No vaginal discharge. Endocrine: No excessive sweating. Musculoskeletal: No muscle aches. Neurological: No motor disturbances and no sensory disturbances. Skin: No skin lesions. Mental Status Includes: Mental Status from this encounter No Mental Status Recorded Functional Status Includes: Functional Status from this encounter No Functional Status Recorded Physical Exam Includes: Physical Exam from this encounter Allergies Includes: Active Allergies No Known Allergies Encounters Encounter Provider Location Date Check-In Time Check-Out Time Diagnosis [facility]15[facility] 10:28AM Clinical Notes Includes: Clinical Notes from this encounter No Clinical Notes Recorded
--- OUTSIDE RECORDS SUMMARY | 2024-05-09 00:10 | XMS_ITS | Clinical Summary ---
Author Name Unknown Address [address] [place], [place] Phone Organization [facility] Address [address] [place] [address] Phone Care Team Providers Care Microsoft Infrastructure Consultant Name Role Phone MARCO FLANAGAN, JOSIAH Lopez Unavailable [phone] Reason for Visit and Chief Complaint The Chief Complaint is: possible yeast infection. patient states that she is having alot of itching, a discharge that is white and really thick, and also it has an odor to it Problems Includes: Problems addressed during this encounter and other active Problems All Visits Onset Date Resolved Date Provider Condition S tatus Endometriosis 10/30/2018 JAY NIETO NP-BC Active Last Documented On 10/30/2018 12:54PM ; [facility] Note: confirmed with surgery - Dr. Isai HUTCHISON - 2015 Plan of Treatment - Clinical summary provided to patient - Last Documented On 09/26/2019 1:59PM ; [facility] Instructions to patient Instructions for patient : K eep the area around the vulva dry. Allow the area to have exposure to air. Avoid irritants such as fabric softeners and perfumed soaps.~ Last Documented On 0 1:31PM ; [facility] Advised d/c scented bath pro ducts Last Documented On 0 1:31PM ; [facility] Education and Decision Aids were provided during visit for: Bacterial Vaginosis Informat ion Sheet Given Last Documented On 0 1:58PM ; [facility] Assessments Includes: Assessments from this encounter Findings - Vulvovaginitis - Last Documented On 09/26/2019 1:59PM ; [facility] Instructions Includes: Instructions from this encounter Instructions to patient Instructions for patient : K eep the area around the vulva dry. Allow the area to have exposure to air. Avoid irritants such as fabric softeners and perfumed soaps.~ Last Documented On 0 1:31PM ; [facility] Advised d/c scented bath pro ducts Last Documented On 0 1:31PM ; [facility] Education and Decision Aids were provided during visit for: Bacterial Vaginosis Informat ion Sheet Given Last Documented On 0 1:58PM ; [facility] Medical Equipment - Implanted Devices Includes: Current Devices No Medical Equipment Recorded Medications Includes: Medications discussed during this encounter and other current Medications New / Renewed during this visit JAY NIETO WHNP-BC on 09/26/2019 Flagyl 500 MG Oral Tablet Provider: JAY BOWLES-B Pa 7 day supply: 14 tablet, 0 refills Diagnosis: One tablet twice a day Pharmacy: [facility] - [address] [place] [address], [address] - Current Medications (continue as prescribed) Levaquin 500 [...] R CAPS 07/12/2012 - 07/19/2012 Provider: JAY BONILLA MIXING PICKER TENDER-BC Diagnosis: Medications Administered Includes: Administered Medications from this encounter No Administered Medications Recorded Vital Signs Includes: Vital Signs from this encounter Vital Name 09/26/2019 01:43P Blood Pressure Sitting (mmHg) 118/60 Height (in) 68 Weight (lb) 183 Body Mass Index (kg/m2) 27.8 Body Surface Area (m2) 2.0 Last Documented: On 09/26/2019 1:45PM ; [facility] Results Includes: Results discussed during this encounter No Results Recorded For Specified Dates History of Present Illness Includes: History of Present Illness from this encounter ELIZABETH HUDDLESTON is a 24 year old female. - No night sweats. Social History Description Last Updated Smoking status : Never smoker 09/26/2019 Procedures and Surgical History Includes: Procedures from this encounter Procedures Code Diagnosis Performing Provider Service L ocation Service Date a BD Affirm was performed Surgical History Last Updated Surgical / procedural history endometrio sis 09/26/2019 Medical History Includes: Medical History addressed during this encounter Description Last Updated LMP: 09/12/2019 09/26/2019 Family History Includes: Family History addressed during this encounter Description Last Updated Family history of diabetes mellitus mate rnal grandma-late in life 08/13/2014 Review of Systems Includes: Review of Systems from this encounter Systemic: No fever. Head: No headache. Eyes: No itching of the eyes. Otolaryngeal: No mouth sores. Breasts: No nipple discharge. Cardiovascular: The heart rate was not fast. Gastrointestinal: Normal appetite, no dysphagia, and no heartburn. No nausea, no vomiting, no abdominal pain, and no melena. No diarrhea. No pelvic pain. Genitourinary: No hematuria and no increase in urinary frequency. No dysuria. No genital lesion. Vaginal itching or burning. No menorrhagia. No dysmenorrhea, no bleeding between periods, and no bleeding after sexual intercourse. Vaginal discharge. Endocrine: No excessive sweating. Musculoskeletal: No [...] Location Date Check-In Time Check-Out Time Diagnosis PROBLEM VISIT JAY NIETO [facility] 09/26/19 20 1:25PM 1:58PM Vulvovaginitis Clinical Notes Includes: Clinical Notes from this encounter No Clinical Notes Recorded
--- OUTSIDE RECORDS SUMMARY | 2024-05-09 00:10 | XMS_ITS | Clinical Summary ---
Author Name Unknown Address [address] [place], [place] Phone Organization [facility] Address [address] [place] [address] Phone Care Team Providers Care Briar Cutter Name Role Phone MARCO FLANAGAN, JOSIAH Lopez Unavailable [phone] Reason for Visit and Chief Complaint gynecologic annual exam - The Chief Complaint is: colpo for ASCUS positive HPV Problems Includes: Problems addressed during this encounter and other active Problems All Visits Onset Date Resolved Date Provider Condition S tatus Endometriosis 10/30/2018 JAY NIETO SOURAV- Active Last Documented On 10/30/2018 12:54PM ; [facility] Note: confirmed with surgery - Dr. Isai Laguerre - U - 2015 Plan of Treatment - Clinical summary provided to patient - Last Documented On 01/27/2020 11:32AM ; [facility] Education and Decision Aids were provided during visit for: INFORMED CONSENT DISCUSSION: Colposcopy was discussed in detail including risk of post procedure bleeding. Patient is not to have intercourse for 2 weeks following the procedure. Patient expressed understanding of the above and consented to the procedure Last Documented On 0 11:07AM ; [facility] Assessments Includes: Assessments from this encounter Findings - Abnormal Pap smear of cervix - Last Documented On 01/27/2020 11:32AM ; [facility] - Abnormal Pap smear: atypical squamous cells of undetermined significance [R87.610 - Atypical squamous cells of undetermined significance on cytologic smear of cervix (ASC-US)] - Last Documented On 01/27/2020 11:32AM ; [facility] - Cervical high risk human papilloma virus DNA test was positive [R87.810 - Cervical high risk human papillomavirus (HPV) DNA test positive] - Last Documented On 01/27/2020 11:32AM ; [facility] Instructions Includes: Instructions from this encounter Education and Decision Aids were provided during visit for: INFORMED CONSENT DISCUSSION: Colposcopy was discussed in detail including risk of post procedure bleeding. Patient is not to have intercourse for 2 weeks following the procedure. Patient expressed understanding of the above and consented to the procedure Last Documented On 0 11:07AM ; [facility] Medical Equipment - Implanted Devices Includes: Current Devices No Medical Equipment Recorded Medications Includes: Medications discussed during this encounter and other current Medications New / Renewed during this visit JAY NIETO WHNP-BC on 01/27/2020 Levaquin 500 MG Oral Tablet Provider: JAY Winn 3 day supply: 3 tablet, 0 refills Diagnosis: One tablet daily Pharmacy: [facility] - [address] [place] [address], [address] [place] [address] Current Medications (continue as prescribed) Macrobid 100 MG Oral Capsule 01/16/2020 Provider: [...] R CAPS 07/12/2012 - 07/19/2012 Provider: JAY LEE Diagnosis: Medications Administered Includes: Administered Medications from this encounter No Administered Medications Recorded Vital Signs Includes: Vital Signs from this encounter Vital Name 01/27/2020 11:07A Blood Pressure Sitting L 118/62 BP Cuff Size Regular Temp-Oral (F) 98.2 Height (in) 68 Weight (lb) 194 Body Mass Index (kg/m2) 29.5 Body Surface Area (m2) 2.0 Last Documented: On 01/27/2020 11:10A M ; [facility] Results Includes: Results discussed during this encounter CULTURE URINE WITH COLONY COUNT [facility] Laboratory Ordered by JAY Lisa-DIXON on 01/14/2020 [address] , [place], [address] Collected: 01/14/2020 Report ed: 01/16/2020 08:14 tel: UA SPECIMEN [facility] (CLEAN None Last Documented On 01/16/2020 2:19PM ; [facility] Note: Responsible Observer: (RMA) CULTURE URINE WITH COLONY COUNT See Note None Last Documented On 01/16/2020 2:19PM ; [facility] Note: _URINE CULTURE_ INFECT. CONT REPORT NO None Last Documented On 01/16/2020 2:19PM ; [facility] Note: MicrobiologySpecimen Source URINE Collection Date 01/14/2020Specimen Note: Collection Time 09:15Exam Id. No: [id number] Receipt Date Final Culture Comment(s): COLONY COUNT >100,000/ML GRAM NEGATIVE BACILLIOrganism # 1: Escherichia coli (esccol) esccol(1)Antibiotics DANIEL uG/ML -------- ---Ampicillin/Sulbactam >=32 RPiperacillin/Tazobactam <=4 SCefazolin 16 SCefoxitin <=4 SCeftazidime <=1 SCeftriaxone <=1 SCefepime <=1 SAztreonam <=1 SErtapenem <=0.5 SMeropenem <=0.25 SAmikacin <=2 SGentamicin >=16 RTobramycin 8 ILevofloxacin <=0.12 S continued... Cont. of Prev. Page esccol(1)Antibiotics DANIEL uG/ML -------- ---Tetracycline >=16 RTigecycline <=0.5 SNitrofurantoin <=16 STrimethoprim/Sulfamethoxa >=320 R S = SUSCEPTIBLE I = INTERMEDIATE R = RESISTANT 01/16/20.0814.MLB. 01/15/20.1318.RMA. 01/16/20.14.MLB.COMPLETECVS (CLEANNOResponsible Observer: (MLB) History of Present Illness Includes: History of Present Illness from this encounter ELIZABETH HUDDLESTON is a 24 year old female. - Medication list reviewed. Social History Description Last Updated Smoking status : Never smoker 01/27/2020 Procedures and Surgical History Includes: Procedures from this encounter Procedures Code Diagnosis Performing Provider Service L ocation Service Date colposcopy of cervix The patient was placed in the dorsal lithotomy position and a vaginal speculum was inserted. Acetic acid (5%) was applied to the cervix. Biopsies were performed. An ECC was done. Kacie's solution was applied as needed to the cervix via a long swab. EBL = minimal. Complications: none. Specimen(s) send to pathology: Patient was given the Colposcopy post-procedure instruction sheet. Follow-up visit will be in 2 weeks. The pathology results will be reviewed at that time [id number] Surgical History Last Updated Surgical / procedural history endometrio sis 09/26/2019 Medical History Includes: Medical History addressed during this encounter Description Last Updated LMP: 01/13/2020 01/27/2020 Family History Includes: Family History addressed during this encounter Description Last Updated Family history unchanged 01/14/2020 Review of Systems Includes: Review of Systems from this encounter No Review of Systems Recorded Mental Status Includes: Mental Status from this encounter No Mental Status Recorded Functional Status Includes: Functional Status from this encounter No Functional Status Recorded Physical Exam Includes: Physical Exam from this encounter Allergies Includes: Active Allergies No Known Allergies Encounters Encounter Provider Location Date Check-In Time Check-Out Time Diagnosis COLPOSCOPY JAY NIETO [facility] 01/27/20 20 11:02AM 11:29AM Assessment of Abnormal Pap Smear of Cervix,Assessmen t of Cerv Pap Smear (+) Atyp Squamous Cells Undetermined Signif,Assessmen t of Cervical High Risk Human Papilloma Virus Dna Test Clinical Notes Includes: Clinical Notes from this encounter No Clinical Notes Recorded
--- OUTSIDE RECORDS SUMMARY | 2024-05-09 00:10 | XMS_ITS ---
Care Plan - [facility] Created on: May 09, 2024 DORI HUDDLESTON : 1995 Sex: Female Author Name Unknown Address [address] [place] [address] Phone Organization [facility] Address [address] [place] [address] Phone Care Team Providers Care Control Officer Manager Name Role Phone MARCO FLANAGAN, JOSIAH Lopez [facility] [phone]
--- OUTSIDE RECORDS SUMMARY | 2024-05-09 00:11 | XMS_ITS | Clinical Summary ---
Author Name Unknown Address [address] [place] [address] Phone Organization [facility] Address [address] [place] [address] Phone Care Team Providers Care Graphic Designer Name Role Phone MARCO FLANAGAN, JOSIAH Lopez Unavailable [phone] Reason for Visit and Chief Complaint gynecologic annual exam - The Chief Complaint is: Annual Problems Includes: Problems addressed during this encounter and other active Problems All Visits Onset Date Resolved Date Provider Condition S tatus Endometriosis 10/30/2018 JAY NIETO [facility]- Active Last Documented On 10/30/2018 12:54PM ; [facility] Note: confirmed with surgery - Dr. Isai Laguerre - - 2015 Plan of Treatment - Clinical summary provided to patient - Last Documented On 01/10/2019 9:56AM ; [facility] Instructions to patient Instructions for patient : B reast Self Exam discussed Last Documented On 9 9:37AM ; [facility] Lose weight Last Documented On 9 9:38AM ; [facility] Gardasil information given a nd series encouraged Series completed! Last Documented On 9 9:38AM ; [facility] Safe sex counseling Last Documented On 9 9:38AM ; [facility] Education and Decision Aids were provided during visit for: Patient Education: Daily linda cium and vitamin D Last Documented On 9 9:37AM ; [facility] Patient Education: weight be aring exercise Last Documented On 9 9:37AM ; [facility] Assessments Includes: Assessments from this encounter Findings - NORMAL FEMALE EXAM - Last Documented On 01/10/2019 9:56AM ; [facility] Instructions Includes: Instructions from this encounter Instructions to patient Instructions for patient : B reast Self Exam discussed Last Documented On 9 9:37AM ; [facility] Lose weight Last Documented On 9 9:38AM ; [facility] Gardasil information given a nd series encouraged Series completed! Last Documented On 9 9:38AM ; [facility] Safe sex counseling Last Documented On 9 9:38AM ; [facility] Education and Decision Aids were provided during visit for: Patient Education: Daily linda cium and vitamin D Last Documented On 9 9:37AM ; [facility] Patient Education: weight be aring exercise Last Documented On 9 9:37AM ; [facility] Medical Equipment - Implanted Devices Includes: Current Devices No Medical Equipment Recorded Medications Includes: Medications discussed during this encounter and other current Medications Discontinued / Stopped on this date JAY NIETO WHNP-BC on 10/30/2018 Ashlyna 0.15-0.03 &0.01MG Oral Tablet Pro vider: JAY NIETO WHNP-BC Diagnosis: New / Renewed during this visit JAY NIETO WHNP-BC on 01/10/2019 19 Oral Tablet Provider: RAFAELA NIETO WHNP-BC 30 day supply: 30 tablet, 11 refills Diagnosis: One tablet daily Pharmacy: [address], [address] - Current Medications (continue as prescribed) Levaquin [...] TABS 08/13/2014 - 08/08/2015 Provider: JAY NIETO NP-BC Diagnosis: CONTRACEPT SURVE ILL NOS Diflucan 150 MG OR TABS 08/13/2014 - 09/12/2014 Provider: JAY NIETO NP-BC Diagnosis: CANDIDAL VULVOVA GINITIS take one dose po x 1 and rpt. in 3 days metroNIDAZOLE 500 MG OR TABS 07/12/2012 - 07/26/2012 P rovider: JAY NIETO WHNP-BC Diagnosis: Doxycycline Hyclate 100 MG O R CAPS 07/12/2012 - 07/19/2012 Provider: JAY NIETO CIVILIAN JAIL OFFICER-BC Diagnosis: Medications Administered Includes: Administered Medications from this encounter No Administered Medications Recorded Vital Signs Includes: Vital Signs from this encounter Vital Name 01/10/2019 09:36A Blood Pressure Sitting L 120/70 BP Cuff Size Regular Height (in) 68 Weight (lb) 194 Body Mass Index (kg/m2) 29.5 Body Surface Area (m2) 2.0 Last Documented: On 01/10/2019 9:39AM ; [facility] Results Includes: Results discussed during this encounter No Results Recorded For Specified Dates History of Present Illness Includes: History of Present Illness from this encounter ELIZABETH COULTER is a 23 year old female. - Medication list reviewed - PRIMARY CARE PROVIDER : Josiah Torres Social History Description Last Updated In monogamous relationship 01/10/2019 Procedures and Surgical History Includes: Procedures from this encounter Procedures Code Diagnosis Performing Provider Service L ocation Service Date low fat diet Surgical History Last Updated Surgical / procedural history endometrio sis 09/26/2019 Medical History Includes: Medical History addressed during this encounter Description Last Updated No recent change in medical history 12/28 Family History Includes: Family History addressed during this encounter Description Last Updated Family history unchanged 01/10/2019 Review of Systems Includes: Review of Systems from this encounter Gastrointestinal: No pelvic pain. Genitourinary: No menorrhagia. No dysmenorrhea and no bleeding between periods. Mental Status Includes: Mental Status from this encounter No Mental Status Recorded Functional Status Includes: Functional Status from this encounter No Functional Status Recorded Physical Exam Includes: Physical Exam from this encounter Allergies Includes: Active Allergies No Known Allergies Encounters Encounter Provider Location Date Check-In Time Check-Out Time Diagnosis CARDIOTHORACIC ICU RN EXAM JAY NIETO [facility] PROJECT CONTROLLER 9 9:33AM 9:59AM Normal Female Exam Clinical Notes Includes: Clinical Notes from this encounter No Clinical Notes Recorded
[2024-05-09 00:49] LABS: Basophils Percent Auto 0.4 % (0.2-1.2); Eosinophils Absolute Auto 0.1 K/mm3 (0-0.3); Eosinophils Percent Auto 0.8 % (0-4.4); Hemoglobin 11.8 g/dL (12.0-15.0); Immature Granulocyte Absolute 0.09 K/mm3 (0.00-0.031); Immature Granulocyte Percent A 0.9 % (0-0.5); Lymphocytes Absolute Auto 2.32 K/mm3 (0.9-3.2); Lymphocytes Percent Auto 22.7 % (18.3-44.2); Mean Corpuscular HGB Conc 33.7 g/dl (32-36); Mean Corpuscular Hemoglobin 28.7 pg (26-34); Mean Corpuscular Volume 85.2 fl (80-100); Mean Platelet Volume 10.7 fl (7.4-10.4); Monocytes Absolute Auto 0.8 K/mm3 (0.1-0.6); Monocytes Percent Auto 7.3 % (2.6-8.5); Neutrophils Percent Auto 67.9 % (45.5-73.1); Platelet Count Result 252 k/mm3 (150-375); Red Blood Count 4.11 M/mm3 (4.2-5.4); Red Cell Distribution Width 12.8 % (11.5-14.5); White Blood Count 10.2 K/mm3 (4.5-10.0)
--- NOTE | 2024-05-09 00:52 | WPDOBADMIT ---
Obstetrics - Admit Note Admission Note: record reviewed. No pertinent additions to the history and/or any subsequent changes in the physical findings that are not consistent with the expected course of the were found. Additions to the history and/or subsequent changes in the physical findings follow. Admit for IOL for cholestasis, anticipate vaginal delivery
[2024-05-09 01:23] LABS: Rapid Plasma Reagin Non-Reactive (NonReactive)
[2024-05-09 01:44] LABS: HIV 1/2 Ab P24 Ag Result Negative (Negative)
[2024-05-09] MEDS: OXYTOCIN 30 UNITS/NS 500 ML 30 UNITS/500 ML BAG IV CONT (05:06)
[2024-05-09] MEDS: LACTATED RINGERS 1,000 ML 125 ML IV CONT ×2 (05:06→08:31)
--- NOTE | 2024-05-09 08:11 | PM.OBPNLAB ---
Pain Control Date/time seen: 05/09/24 08:11 Pelvic Exam Comments: heart rate category 1 contractions irregular SVE 3/70/-2 AROM clear odorless fluid, anticipate vaginal delivery
--- NOTE | 2024-05-09 09:23 | WPDANESEPPF ---
Anes - Initial Pre Proc Eval Procedure: labor epidural Date/Time: 05/09/24 09:23 Surgeon: Blue Deutsch MD Pre Op Diagnosis: labor pain Pre Op Diagnosis: IOL Patient Data Age: 29 Gender: F Height: Weight: Last Vital Signs Temp 36.6 C 05/09/24 06:28 Pulse 71 05/09/24 09:22 BP 116/58 L 05/09/24 09:22 Pulse Ox 100 05/09/24 09:21 O2 Del Method Room Air 05/09/24 00:29 Allergies Allergy/AdvReac Type Severity Reaction Status Date / Time No Known Allergies Allergy Verified 05/09/24 00:39 Home Medications Medication Instructions Recorded Confirmed Type fluoxetine 20 mg capsule 20 mg PO DAILY 02/07/21 05/09/24 History vit no.95-ferrous 1 tablet PO DAILY 02/07/21 05/09/24 History fumarate 28 mg-folic acid 800 mcg tablet () propranolol 10 mg tablet 10 mg PO Q8H PRN Anxiety 02/07/21 02/07/21 History Laboratory Tests 05/09/24 00:41 WBC 10.2 H K/mm3 (4.5-10.0) RBC 4.11 L M/mm3 (4.2-5.4) Hgb 11.8 L D g/dL (12.0-15.0) Hct 35.0 L % (37.0-47.0) MCV 85.2 fl (80-100) MCH 28.7 pg (26-34) MCHC 33.7 g/dl (32-36) RDW 12.8 % (11.5-14.5) Plt Count 252 k/mm3 (150-375) MPV 10.7 H fl (7.4-10.4) Immature Gran % (Auto) 0.9 H % (0-0.5) Neut % (Auto) 67.9 % (45.5-73.1) Lymph % (Auto) 22.7 % (18.3-44.2) [place] % (Auto) 7.3 % (2.6-8.5) Eos % (Auto) 0.8 % (0-4.4) Baso % (Auto) 0.4 % (0.2-1.2) Lymph # (Auto) 2.32 K/mm3 (0.9-3.2) [place] # (Auto) 0.8 H K/mm3 (0.1-0.6) Eos # (Auto) 0.1 K/mm3 (0-0.3) Baso # (Auto) 0.0 K/mm3 (0.0-0.1) Abs Immat Gran (auto) 0.09 H K/mm3 (0.00-0.031) Absolute Neuts (auto) 7.0 H K/mm3 (1.3-6.7) Absolute Nucleated RBC 0.000 K/mm3 (0.0-0.012) Nucleated RBC % 0.0 % (0.0-0.2) RPR Non-reactive (NonReactive) HIV 1&2 Ab/P24 Ag 4thGn Negative (Negative) Blood Type O Positive Antibody Screen Negative Patient hx anesthesia problems: none Family hx anesthesia problems: none Results Review: All pre-operative results and documents have been reviewed as part of the pre-operative evaluation. PMFSH Family History Family History Sibling ADHD Social History Social History (Updated 04/07/24 @ 15:39 by Christina Aparicio) Social History: Caffeine-soda Smoking status: Never smoker Second hand tobacco smoke exposure: No Alcohol intake: never Substance use: never Substance use type: does not use Do You Feel Safe in your Home?: Yes Lack of Transportation: No Lack of Food: Never True Current Housing: I Have Housing Concerned About Future Housing: No Difficulty Paying Gas/Electric Bills: No Difficulty Paying for Meds: No Currently Unemployed: No Education: Bachelor's Degree Difficulty w/ Childcare or Family Care: No Gender identity (if verbalized by the patient): Female Spiritual care concerns: No Anes - Eval Final PreProcedure Day of Procedure 05/09/24 09:23 Patient weight: overweight ASA classification: II Anesthetic plan: proceed Anesthesia type and monitoring: regional epidural and standard monitoring Results Review: All pre-operative results and documents have been reviewed as part of the pre-operative evaluation. Informed Consent: The patient's anesthetic plan and its attendant risks and benefits were discussed with the patient/family/POA. Questions were solicited and answers provided to the satisfaction of the patient/family/POA.
--- NOTE | 2024-05-09 11:16 | PM.OBPRVD ---
OB - Vaginal Delivery Note Procedure Delivery date: 05/09/24 Events: Other (cholestasis) Induction method: AROM and Per Pitocin Protocol Delivery monitor: External FHT and External Uterine Route of delivery: Episiotomy description: None Laceration Description: Perineal - 1st Degree Delivery repair: vicryl Specimen: Yes Quantitative Blood Loss (ml): 275 Anesthesia type: Epidural Disposition: Floor Complications: No immediate complications Baby Date of : 05/09/[birth year] Time of : 11:07 Gestational Age by Date: 36 Infant gender: Male presentation: vertex position: Right Occiput Anterior Placenta delivery description: Spontaneous Cord Vessel Description: 3 Vessels, Clamped/Cut and Delayed Cord Clamping score one minute: 9 score five minutes: 9 Narrative: skin to skin in stable condition
[2024-05-09] MEDS: WITCH HAZEL 40 PADS 1 PAD TOPICAL (11:38)
[2024-05-09] MEDS: OXYTOCIN 30 UNITS/NS 500 ML 30 UNITS/500 ML BAG 125 UNITS IV CONT (11:38)
[2024-05-09] MEDS: BENZOCAINE 20% AER SPR (*SP) 56 GM CAN 1 SPRAY TOPICAL (11:38)
[2024-05-10 04:40] VITALS: BP 109/67; PULSE 65; RESP 18; TEMP 36.9
[2024-05-10 05:45] LABS: Hematocrit 33.9 % (37.0-47.0); Hemoglobin 11.4 g/dL (12.0-15.0)
--- NOTE | 2024-05-10 06:51 | WPDANLDPN2 ---
Anes-Prog Note L&D Date/Time: 05/10/24 06:51 Comfortable throughout: labor and delivery Neuraxial method: epidural Epidural/Spinal procedure site: clean & non-tender Neuro status: Neuro function grossly intact. Cardiovascular status: normal Respiratory status: normal Airway patency: baseline Mental status: baseline Post-Op hydration status: normal Vital Signs: Last Vital Signs Temp 36.9 C 05/10/24 04:40 Pulse 65 05/10/24 04:40 Resp 18 05/10/24 04:40 BP 109/67 05/10/24 04:40 Pulse Ox 97 05/09/24 10:59 O2 Del Method Room Air 05/09/24 20:00 Pain score (VAS): 1 I/O: Intake & Output 05/09/24 05/09/24 05/10/24 15:59 23:59 07:59 Intake Total 1500 Output Total 325 Balance 1175 Post-procedural complaints: none Patient feedback: Patient satisfied with anesthetic care.
--- NOTE | 2024-05-10 07:17 | PM.OBPNVD ---
OB - PN: Subj Subjective Date/time seen: 05/10/24 07:17 Narrative: pp day 1 bottle feeding doing well denies complaints OB - PN: Obj Data Labs 05/10/24 04:04 Labs: Laboratory Results - last 24 hr 05/10/24 04:04 Hgb 11.4 L Hct 33.9 L OB - PN A/P Plan day: 1 Time Spent With Patient Time: Total time spent is greater than 50% in coordination of care (as documented) at patient's floor/unit and/or counseling patient: Review of Systems Review of Systems: All systems reviewed & are unremarkable except as noted in HPI and below Exam Const: General: cooperative and healthy appearing Chest: Chest palpation & inspection: normal inspection of the chest Cardio: Rate: regular rate GI: Other: soft Skin: General skin exam: normal color Neuro: General: patient oriented x3 Extrem: General: normal to inspection
[2024-05-10 09:35] VITALS: BP 113/67; PULSE 72; RESP 18; TEMP 36.8; O2SAT 99
[2024-05-10] MEDS: FLUoxetine HCL 20 MG CAPSULE PO (09:45)
[2024-05-10] MEDS: DOCUSATE SODIUM 100 MG CAPSULE PO (09:45)
[2024-05-10 19:00] VITALS: BP 114/61; PULSE 66; RESP 18; TEMP 36.6
[2024-05-11] MEDS: FLUoxetine HCL 20 MG CAPSULE PO (06:49)
[2024-05-11 07:43] VITALS: BP 107/71; PULSE 110; RESP 16; TEMP 36.7; O2SAT 96
--- NOTE | 2024-05-11 08:41 | PM.OBPNVD ---
OB - PN: Subj Subjective Date/time seen: 05/11/24 08:41 Patient comments: no complaints, pain well controlled and tolerating diet OB - PN: Obj Data Labs 05/10/24 04:04 OB - PN A/P Plan day: 2 Plan: routine care and discharge home Time Spent With Patient Time: Total time spent is greater than 50% in coordination of care (as documented) at patient's floor/unit and/or counseling patient: Exam Const: General: comfortable and no acute distress Resp: Effort & Inspection: normal respiratory effort Auscultation: no rales, no rhonchi and no wheezes Cardio: Rate: regular rate Heart sounds: no click, no murmurs and no rubs GI: GI Palp: Yes Soft to palpation and No Tenderness to palpation present (GI) Auscultation: normal bowel sounds Extrem: General: normal to inspection, no pedal edema and no calf tenderness
--- NOTE | 2024-05-11 08:42 | P.DS_ITS ---
DS: Admitting Diagnosis Discharge Date May 11, 2024 Admitting Diagnosis term DS: Discharge Diagnosis Discharge Diagnosis (1) Term delivered: Code(s): O80 - Encounter for full-term uncomplicated delivery Status: Acute OB - DS: Summary OB Procedures : None OB Procedures Intrapartum: Spontaneous Vag Delivery OB Procedures: : None Peripartum Data Laceration Description: Perineal - 1st Degree Episiotomy description: None Time Spent with Patient Time attestation: Total time spent providing and/or coordinating discharge services: DS: Data Data Completed and Pending Pending studies at discharge: Pending at discharge 05/09/24 11:43 Surgical [PTH] Routine Discharge Plan Discharge Consulting providers: Jocelynn Nicholson Discharging Clinician: Blue Deutsch Patient Disposition: Home, Self-Care Activity: pelvic rest Diet: regular Discharge Instructions: Education: Mom and Baby Guide Given to: Mother Follow-Up: Call your delivering provider's office for an appointment to be seen in: call and make an appointment Mom and baby should come to the [facility] for the follow-up appointment. Appointment Date/Time: May 12, 2024 at 8:00 am What to expect at your follow-up visit: Physical Assessment Call [phone] if you are unable to keep your appointment time. BREAST CARE: * Wear a snug supportive bra. * For engorgement discomfort: Bottle Feeding: * May apply ice packs EPISIOTOMY/PERINEAL CARE: * Until bleeding stops, use your laura bottle after urinating * Change your pad frequently throughout the day * You may take sitz baths several times a day (fill your bathtub with warm water and soak for 20 minutes.) Do NOT bathe in the water * No tub baths until seen by your physician - You may shower ACTIVITY: * Rest as much as possible. * Do not exercise or lift anything heavier than your baby (such as laundry or other children.) * Avoid stairs or driving as much as possible. * Do not put anything into the vagina. No douching, tampons, or sexual activity until seen by physician. NOTIFY PHYSICIAN IF YOU HAVE ANY QUESTIONS OR IF ANY OF THE FOLLOWING SYMPTOMS OCCUR: * If your episiotomy or incision becomes red, swollen, or more painful than what you have experienced in the hospital. * If your vaginal bleeding becomes foul smelling. * If your vaginal bleeding becomes more heavy than a period or if your bleeding changes from pink to bright red. However, you may pass an occasional walnut- sized clot once or twice for the first week . * If you experience a sharp, shooting pain in you calves. * If you discover a hard, reddened area on your breast or if you experience flu-like symptoms. DIET: * Eat regular, well-balanced meals. * Drink plenty of fluids daily. If , drink to thirst. Patient Instructions: Antibiotic Form Stand Alone Forms: General Discharge Information Follow-up/Referrals: Blue Deutsch MD [Physician] - Discharge Medications: Continued propranolol 10 mg Tablet 10 mg PO Q8H PRN (Reason: Anxiety) fluoxetine 20 mg Capsule 20 mg PO DAILY PNV [id number] fumarate-FA [] 28 mg iron- 800 mcg Tablet 1 tablet PO DAILY Date of admission: 05/09/24 00:00 Primary Care Provider: UNKNOWN,DOCTOR Admitting Provider: Blue Deutsch Attending physician on admission: Blue Deutsch Condition: Stable
[2024-05-12 08:28] VITALS: BP 119/80; PULSE 81; RESP 18; TEMP 36.7; O2SAT 100
== END 2024-05-11 11:34 | disposition home or self-care (01) | DRG 807 ==
LOC: ANHLDR 01:21 → ANHOB2 13:48
PROVIDERS: Advanced Practice Midwife; Admitting Provider Obstetrics & Gynecology; Visit Provider Obstetrics & Gynecology
DX: O26.643 Intrahepatic cholestasis of pregnancy, third trimester (principal); Z37.0 Single live birth; Z3A.36 36 weeks gestation of pregnancy; O62.3 Precipitate labor; O70.0 First degree perineal laceration during delivery
CPT/HCPCS: 36415; 85014; 85018; 85025; 86592; 86703; 86850; 86900; 86901; 88307; A9270; G0432; J2590; J2795; J7120

== ENCOUNTER 2024-06-17 10:38 | Outpatient (CLI) | payer OTHER, SELFPAY ==
--- NOTE | ~2024-06-17 | US_ITS ---
EXAMINATION TYPE: US breast LT limited COMPARISON: 04/02/2024 REASON FOR STUDY: N63.21 - Unspecified lump in the left breast, upper outer... TECHNIQUE: Targeted sonographic evaluation of the left breast was performed. INTERPRETATION: Again seen at the left breast 2:00 position, 4 cm from nipple, is an ovoid, somewhat lobulated, wider than tall mass measuring 4.4 x 2.1 x 3.8 cm. Mass is hypoechoic and mildly heterogeneous. No posteri or shadowing. IMPRESSION: 4.4 x 2.1 x 3.8 cm mass at the left breast 2:00 position, mildly decreased in size based on compariso n measurements from prior exam, but otherwise stable in appearance. Previous biopsy results are repor tedly benign. BI-RADS CATEGORY: BI-RADS 2: Benign Reviewed, dictated and finalized at location M. IO DESIGNER IMPRESSION: 4.4 x 2.1 x 3.8 cm mass at the left breast 2:00 position, mildly decreased in s ize based on comparison measurements from prior exam, but otherwise stable in a ppearance. Previous biopsy results are reportedly benign. BI-RADS CATEGORY: BI-RADS 2: Benign
== END 2024-06-17 10:39 | disposition home or self-care (01) ==
LOC: ANHIMG 10:39
PROVIDERS: Visit Provider Surgery
DX: O92.29 Other disorders of breast associated with pregnancy and the puerperium (principal)
CPT/HCPCS: 76642